=== PATIENT | male | born 1965 | race Two or more races ===

== ENCOUNTER 2024-10-07 12:03 | Emergency (ER) | payer OTHER ==
[~2024-10-07] VITALS: Ht 185.4 cm; Wt 113.4 kg
[2024-10-07] MEDS ORDERED: IBUP-1490 PO (12:51)
[2024-10-07 13:05] VITALS: BP 155/75; TEMP 98.1; O2SAT 97
== END 2024-10-07 12:55 | disposition home or self-care (01) ==
LOC: ER 12:16
DX: S80.01XA Contusion of right knee, initial encounter (principal); S60.812A Abrasion of left wrist, initial encounter; V43.52XA Car driver injured in collision with other type car in traffic accident, initial encounter; Y93.89 Activity, other specified; Y92.415 Exit ramp or entrance ramp of street or highway as the place of occurrence of the external cause; Y99.8 Other external cause status
CPT/HCPCS: 73110; 73130-TC; 73564-TC